=== PATIENT | female | born 1955 | race Caucasian/White ===

== ENCOUNTER 2019-02-13 11:15 | Emergency (ER) | payer BC ==
[~2019-02-13] VITALS: Ht 177.8 cm; Wt 108.0 kg
[~2019-02-13 11:15] MED LIST: LEVOTHYROXIN150 MCG PO; MEDDOSEPAK PO
[2019-02-13] MEDS ORDERED: HYCODAN1 ML PO (11:22)
[2019-02-13] MEDS ORDERED: CEFUROXIME250 MG PO (11:22)
[2019-02-13] MEDS ORDERED: ZPAK PO (13:05)
[2019-02-13] MEDS ORDERED: VENTOLIN HFA IN (13:05)
[2019-02-13] MEDS ORDERED: TESSALON PERLE100 MG PO (13:05)
[2019-02-13] MEDS ORDERED: AMOXICILLIN875 MG PO (13:05)
[2019-02-13 13:24] VITALS: BP 128/83
== END 2019-02-13 13:25 | disposition home or self-care (01) | DRG 153 ==
LOC: ED 11:15
DX: J02.0 Streptococcal pharyngitis (principal); Z87.01 Personal history of pneumonia (recurrent)

== ENCOUNTER 2019-09-05 10:54 | Emergency (ER) | payer BC ==
[~2019-09-05 10:54] MED LIST changes: +AMOXICILLIN875 MG PO; +CEFUROXIME250 MG PO; +HYCODAN1 ML PO; +TESSALON PERLE100 MG PO; +VENTOLIN HFA IN; +ZPAK PO
[2019-09-05] MEDS ORDERED: LEVOTHYROXIN125 MCG PO (11:24)
[2019-09-05 11:46] LABS: HEMATOCRIT 46.2 % (37.0-47.0); IMMATURE GRANULOCYTES 0.6 % (0.0-5.0); MEAN CELL VOLUME 87.2 fL CALC (80.0-100.0); MEAN CORPUSCULAR HGB 28.3 pG CALC (26.0-32.0); MEAN CORPUSCULAR HGB CONC 32.5 g/dL CAL (32.0-36.0); NEUT# 5.42 thou/uL (2.00-7.15); RED BLOOD COUNT 5.3 mill/uL (4.20-5.60); RED CELL DISTRI WIDTH 13.6 % (11.5-15.5)
[2019-09-05 12:09] LABS: ACT PARTIAL THROMBO TIME 26.1 SECONDS (20.0-32.5); D-DIMER 0.44 mg/L (0.19-0.60)
[2019-09-05 12:10] LABS: ALBUMIN 4.5 g/dL (3.2-5.0); ALKALINE PHOSPHATASE 129 u/l (38-126); ANION GAP 15 (6-22 (CALC)); BILIRUBIN, TOTAL 0.5 mg/dL (0.0-1.4); BUN 22 mg/dL (8-23); BUN/CREATININE RATIO 23 (12-20 (CALC)); CARBON DIOXIDE 23 mmol/l (22-30); CHLORIDE 103 mmol/l (95-108); CREATININE 0.9 mg/dL (0.5-1.0); GFR > 60 ML/MIN (>=60 (CALC)); GFR FOR AFR.AMER. > 60 ML/MIN (>=60 (CALC)); POTASSIUM 4.1 mmol/l (3.5-5.1); SGOT/AST 33 u/l (9-36); SODIUM 137 mmol/l (137-146); TOTAL PROTEIN 8.1 g/dL (6.3-8.2)
[2019-09-05 12:39] LABS: TSH, 3RD GENERATION 0.84 uIU/mL (0.47 - 4.68)
[2019-09-05 13:23] VITALS: BP 119/73
== END 2019-09-05 13:36 | disposition home or self-care (01) | DRG 310 ==
LOC: ED 10:54
DX: R00.2 Palpitations (principal); R07.9 Chest pain, unspecified; I48.91 Unspecified atrial fibrillation